=== PATIENT | male | born 1985 | race Caucasian/White ===

== ENCOUNTER 2021-07-22 00:03 | Emergency (ER) | payer SELFPAY ==
[~2021-07-22] VITALS: Ht 190.5 cm; Wt 100.9 kg
[2021-07-22] MEDS ORDERED: QUET300T2 PO (00:26)
[2021-07-22] MEDS ORDERED: TOPI100T37 PO (00:26)
[2021-07-22] MEDS ORDERED: OXCA300T57 PO (00:26)
[2021-07-22 00:32] VITALS: BP 137/73
== END 2021-07-22 00:58 | disposition home or self-care (01) ==
LOC: EMS 00:04
DX: R45.851 Suicidal ideations (principal); F31.9 Bipolar disorder, unspecified; F17.210 Nicotine dependence, cigarettes, uncomplicated; Z88.0 Allergy status to penicillin; Z88.1 Allergy status to other antibiotic agents
CPT/HCPCS: 99285; Z7502